=== PATIENT | male | born 2000 | race Caucasian/White ===

== ENCOUNTER 2021-06-25 12:40 | Emergency (ER) | payer OTHER ==
[~2021-06-25] VITALS: Ht 188 cm; Wt 77.1 kg
[2021-06-25 12:47] VITALS: BP 140/75
[2021-06-25] MEDS ORDERED: KETOROLAC 60 MG/2 ML VIAL IM ONE (13:00)
--- NOTE | 2021-06-25 13:06 | NUR ---
DR. RODRIGUEZ BEDSIDE EVALUATING PT
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
[2021-06-25] MEDS ORDERED: IBUP-2213 PO (13:20)
--- NOTE | 2021-06-25 13:41 | NUR ---
PT NEVER RETURNED TO BED 7. ER MD MADE AWARE. SEARCHED LOBBY AND NO WHERE TO BE SEEN
--- NOTE | 2021-06-25 13:42 | NUR ---
PT LEFT WITHOUT D/C PAPERWORK AND PAIN MEDICATION. ER MD MADE AWARE
[2021-06-25 13:46] VITALS: BP 140/75
--- NOTE | 2021-06-25 13:47 | NUR ---
PT LEFT WITHOUT D/C PAPERWORK
[2021-06-26] MEDS ORDERED: ONDANSETRON 4 MG ODT ONE (03:48)
== END 2021-06-25 13:46 | disposition home or self-care (01) ==
LOC: MED 12:40
DX: R51.9 Headache, unspecified (principal)
CPT/HCPCS: 96372; 99283; J1885; Q0162